=== PATIENT | female | born 1985 | race Caucasian/White ===

== ENCOUNTER → 2021-02-16 16:22 | Outpatient (CLI) | payer OTHER, SELFPAY ==
--- NOTE | 2021-02-16 | CER_PTH ---
PATIENT: EWELINA PRABHAKAR LOC: [facility] #:[id number] AGE/SX: 39/F ROOM: RE02/16/[address]: Dr. Luis Rosenthal MD : 1985 BED: DIS: SPEC #: [id number] RECD: 02/16/21 17:17 STATUS: KAYLIN QUEEN #: [id number] EL[place]: 02/16/21 00:[address]: Luis Rosenthal DEPT: SURGICAL PATHOLOGY RECD BY: Abeba Galaviz Tissues: A - Uterine cervix, NOS B - Endocervical Procedures: Surgery Specimen Level IV HEADER OPERATION: Colposcopy PRE-OP DIAGNOSIS: ASCUS, HPV positive TISSUE SUBMITTED: A ? Cervical biopsy 1, 5, 7, 11, B - ECC MICROSCOPIC DIAGNOSIS A. 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 Squamous metaplasia and chronic inflammation. See comment. B. Endocervix, curettings (cell block): Rare benign epithelial cells present. AM:kostas 02/18/2021 COMMENT A. Results from immunohistochemistry ([id number]) for surrogate HPV marker (p16) will be reported separately. MICROSCOPIC DESCRIPTION Slides are reviewed. GROSS DESCRIPTION A - Received in fixative is one container labeled with the patient's name and designated cervical biopsy. The specimen consists of multiple irregular fragments of light andino soft tissue that in aggregate measure 1.5 x 1 x 0.1 cm. The specimen is totally submitted in one cassette. B - Received in fixative is one container labeled with the patient's name and designated ECC. The specimen consists of approximately 25 ml of clear fluid. The fluid is submitted for cell block preparation. / AM:kostas 02/17/21 TC:3 CPT: 69324 x2
--- NOTE | 2021-02-16 | IMM_PTH ---
PATIENT: EWELINA PRABHAKAR LOC: [facility] U#:[id number] AGE/SX: 39/F ROOM: RE02/16/[address]: Dr. Luis Rosenthal MD : 1985 BED: DIS: SPEC #: [id number] RECD: 02/18/21 12:26 STATUS: KAYLIN BERNICE #: [id number] ELLE: 02/16/21 00:[address]: Luis Rosenthal DEPT: IMMUNOHISTOCHEMISTRY RECD BY: Estrellita Flanagan Tissues: A - Uterine cervix, NOS Procedures: p16 (initial) KI-67 (add) PHYSICIAN & INSTITUTION [place] [id number] SPECIMEN INFORMATION: Tissue Source: A ? Cervical biopsy Clinical Info: ASCUS, HPV positive Specimen Number: [id number] CPT code: 91193, 56960 METHODOLOGY: Deparaffinized sections of prefer/formalin-fixed tissue or PAP/DQ stained slides are incubated with monoclonal/polyclonal antibodies/oligonucleotide probes. Localization is made via biotin free immunoperoxidase method. Appropriate controls are performed and reacted as expected. Results on target cell population are indicated in the following table: RESULTS: ANTIBODY / CLONE RESULT Block A P16 (E6H4) positive, focal patchy Ki-67 (30-9) positive, low These tests were developed and their performance characteristics determined by [facility]. They may not have been cleared or approved by the [place]. Food and Drug Administration. The FDA has determined that such clearance or approval is not necessary. The above immunohistochemical/dualISH markers are ordered and reviewed by the Pathologist. INTERPRETATION: A. Cervical biopsy: Consistent with HPV change (LSIL). AM:kostas 02/21/2021
== END ==
PROVIDERS: Visit Provider Obstetrics & Gynecology
DX: A63.0 Anogenital (venereal) warts (principal)
CPT/HCPCS: 88305; 88341; 88342

== ENCOUNTER → 2021-07-19 | Outpatient (CLI) | payer OTHER, SELFPAY ==
[2021-07-19 15:00] LABS: Hematocrit 39.4 % (37-47); Hemoglobin 12.7 g/dL (12.0-15.0); Mean Corp Hgb Conc 32.2 g/dL (32-36); Mean Corpuscular Volume 96.1 fL (81-99); Mean Platelet Vol. 9.2 fl (6.2-12.0); Platelet Count 367 K/mm3 (150-450); RBC Distribution Width SD 42.7 fl (35.1-43.9); White Blood Count 6.3 K/mm3 (4.4-11.0)
[2021-07-19 15:25] LABS: Estradiol 117.6 pg/mL; Follicle Stimulating Hormone 4.7 mIU/mL; Luteinizing Hormone 2.1 mIU/mL; T4 Free Direct 1.01 ng/dL (0.76-1.46); Thyroid Stim Hormone (TSH) 1.03 uIU/mL (0.358-3.74)
== END | disposition home or self-care (01) ==
PROVIDERS: Visit Provider Obstetrics & Gynecology
DX: N93.9 Abnormal uterine and vaginal bleeding, unspecified (principal)
CPT/HCPCS: 36415; 82670; 83001; 83002; 84439; 84443; 85027

== ENCOUNTER → 2021-08-16 | Outpatient (CLI) | payer OTHER, SELFPAY ==
--- NOTE | 2021-08-16 14:30 | EMB_PTH ---
PATIENT: EWELINA PRABHAKAR LOC: [facility] U#:[id number] AGE/SX: 36/F ROOM: RE08/16/[address]: Dr. Luis Rosenthal MD : 1985 BED: DIS: 08/16/2021 SPEC #: [id number] RECD: 08/17/21 08:18 STATUS: KAYLIN BERNICE #: [id number] ELLE: 08/16/21 14:[address]: Luis Rosenthal DEPT: SURGICAL PATHOLOGY RECD BY: Abeba Galaviz Tissues: Endometrium, NOS Procedures: Surgery Specimen Level IV HEADER OPERATION: Endometrial biopsy PRE-OP DIAGNOSIS: Abnormal uterine bleeding TISSUE SUBMITTED: Endometrial biopsy MICROSCOPIC DIAGNOSIS Endometrial biopsy: Late proliferative/early secretory endometrium. TAHIR:kostas 08/18/2021 MICROSCOPIC DESCRIPTION Slides are reviewed. GROSS DESCRIPTION Received in fixative is one container labeled with the patient's name and designated endometrial biopsy. The specimen consists of multiple irregular fragments of andino-pink soft tissue that in aggregate measure 2 x 1.5 x 0.2 cm. The specimen is totally submitted in one cassette. / SJ:rg 08/17/2021 TC:4 CPT: 18848
== END | disposition home or self-care (01) ==
LOC: LABSPEC 16:00
PROVIDERS: Visit Provider Obstetrics & Gynecology
DX: N93.9 Abnormal uterine and vaginal bleeding, unspecified (principal)
CPT/HCPCS: 88305